=== PATIENT | male | born 1970 | race Caucasian/White ===

== ENCOUNTER 2023-01-05 06:39 | Emergency (ER) | payer MEDICAID, SELFPAY ==
[2023-01-05 06:42] VITALS: BP 160/114; PULSE 104; RESP 16; TEMP 35.8; O2SAT 100; BMI 30.1
--- NOTE | 2023-01-05 06:56 | EDS_ITS ---
HPI History of Present Illness Chief Complaint: General Illness Informant: patient Narrative Narrative: Presents ED per private vehicle requesting a COVID test. Nursing history history of traumatic brain injury in the past. He lives independent. Denies fevers headache chest pains nausea vomiting or diarrhea. Denies myalgias. Reports he was tested 1 to 2 years ago while he was in prison at that time for 3 days. He is not vaccinated. He has not had COVID in the past. No exposures however states he just wants to be tested today. Prior similar symptoms: No PFSH PFSH Medical History no medical history Home Medications NK 01/05/23 [History Last Taken Unknown] Allergy/AdvReac Type Severity Reaction Status Date / Time No Known Allergies Allergy Verified 01/05/23 06:53 Social History Smoking Status: Never smoker ROS ROS ED Constitutional Constitutional ED: Denies chills, fever(s) or sweats Eyes Eyes: Denies change in vision ENT ENT ED: Denies dysphagia or sore throat Cardiovascular Cardiovascular: Denies chest pain, leg edema, palpitations or racing heartbeat Respiratory/Chest Respiratory/Chest: Denies cough, dyspnea or dyspnea on exertion Gastrointestinal Gastrointestinal: Denies abdominal pain, diarrhea, nausea or vomiting Genitourinary Genitourinary ED: Denies dysuria, hematuria or urinary frequency Musculoskeletal Musculoskeletal: Denies back pain, extremity pain or neck pain Integumentary Denies rash or wounds Neurologic Neurologic: Denies headache(s), paresthesias or weakness EXAM Physical Exam Const Vital Signs: 01/05/23 06:42 01/05/23 06:45 Temperature 96.5 F L Temperature Source Temporal Pulse Rate 104 H Respiratory Rate 16 Respiratory Effort Normal Non-Labored Respiratory Pattern Normal Blood Pressure 160/114 H Blood Pressure Mean 129 Pulse Ox 100 Oxygen Delivery Method Room Air Positive well nourished and well developed Constitutional Narrative: Cooperative, nontoxic. General Appearance ED: well developed and NAD HEENT Reports moist mucous membranes normocephalic and atraumatic Eyes PERRL, EOMs intact bilaterally and conjunctivae normal General Eye ED: Yes normal appearance of both eyes Neck no lymphadenopathy and supple General: Negative for tenderness Chest Wall Chest: Negative for tenderness Resp normal respiratory effort and normal air movement Effort and Inspection: symmetric chest movement; Negative for respiratory distress Cardio regular rate, regular rhythm and no murmurs Peripheral Pulses: pulses 2+ throughout GI normal to inspection, nondistended, normoactive bowel sounds and non-tender Palpation: Negative for guarding or rebound tenderness present Back/Spine no CVA tenderness and no thoracic nor lumbar tenderness Extremity normal to inspection General Extremety ED: Negative for edema or tenderness General Extremity: Negative for edema Neuro oriented x3 and no sensory deficits noted Sensorium / Orientation: awake and alert Skin no rashes or lesions noted and no wounds MDM MDM MDM Narrative Medical decision making narrative: Interventions / MDM: Differential diagnosis: Feared complaint, will check Diagnosis considered but do not suspect: COVID however testing negative My EKG interpretation: N/A Imaging independently reviewed and interpreted by myself: N/A External documents reviewed: N/A Test considered but not ordered:N/A ED course: Patient nontoxic afebrile. Clinically asymptomatic requesting testing. Rapid testing ordered which was negative. He is reassured. Outpatient follow-up given. All questions were answered. Re-evaluation: stable Disposition discussed with patient/family/significant other: Patient Case discussed with consulting clinician: N/A This note was generated with Dream[employer] dictation software. It may contain incorrect words, spelling, and punctuation that were not noted in checking the note before signing. Discharge Plan Triage Chief Complaint: General Illness ED Provider: Ramesh Anaya Dx/Rx/DC Orders Clinical Impression: Feared complaint without diagnosis, Well adult health check Instructions: ED Screening Exam Medical Nonurgent Prescriptions: No Action NK Primary Care Provider: Care Physician,No Primary Referrals: Lizbeth Hatch [Non-Staff] - 1-2 Weeks NOT,DEFINED [Non-Staff] - Activity Restrictions/Additional Instructions: COVID testing negative. Follow-up as an outpatient. Disposition Disposition: Home, Self Care Discharge Date/Time: 01/05/23 08:17
== END 2023-01-05 08:17 | disposition home or self-care (01) ==
PROVIDERS: Emergency Provider Emergency Medicine; Visit Provider Emergency Medicine
DX: Z71.1 Person with feared health complaint in whom no diagnosis is made (principal)
CPT/HCPCS: 87811; 99282

== ENCOUNTER 2023-01-06 02:30 | Emergency (ER) | payer MEDICAID, SELFPAY ==
[2023-01-06 02:31] VITALS: BP 173/107; PULSE 119; RESP 18; TEMP 36; O2SAT 98; BMI 29.7
--- NOTE | 2023-01-06 02:43 | EX.ED.DYSGE1 ---
HPI History of Present Illness Chief Complaint: Lower Extremity Injury Detail of Chief Complaint: Blisters to toes of right foot Informant: patient Onset/Context/Timing Onset: Today Narrative Narrative: Patient presents at 2:30 AM secondary to blisters on the toes of his right foot. He states he gets this because he is walking a lot. He states he has no problems with his left foot. PFSH PFSH no medical history Home Medications NK 01/05/23 [History Last Taken Unknown] Allergy/AdvReac Type Severity Reaction Status Date / Time No Known Allergies Allergy Verified 01/06/23 02:34 Social History Smoking Status: Never smoker ROS ROS ED ROS Narrative Patient with pressured speech and difficulty redirecting him to answer questions. Constitutional Constitutional ED: Denies chills or fever(s) Eyes Eyes: Denies change in vision Cardiovascular Cardiovascular: Denies chest pain Respiratory/Chest Respiratory/Chest: Denies cough Integumentary Reports other Details: Blisters to toes of right foot. EXAM Physical Exam Const Vital Signs: 01/06/23 02:31 Temperature 96.8 F L Temperature Source Temporal Pulse Rate 119 H Respiratory Rate 18 Blood Pressure 173/107 H Blood Pressure Mean 129 Pulse Ox 98 Oxygen Delivery Method Room Air Positive well nourished and well developed General Appearance ED: well developed Eyes EOMs intact bilaterally Chest Wall inspection of chest normal and palpation of chest normal Resp normal respiratory effort and clear to auscultation bilaterally Cardio Rate: tachycardic GI non-tender Palpation: soft Extremity Extremity Narrative: Small blister noted to each toe of the right foot. No erythema or surrounding evidence of inflammation. No sign of infection. Strong distal pulses with normal cap refill. Neuro oriented x3 Psych Psych Narrative: Pressured speech with tangential thought process Attitude: agitated MDM MDM MDM Narrative Medical decision making narrative: Dressing is applied to the right foot to help protect the blisters. I did explain to him that we do not drain these secondary to concern for causing an infection. At this time he does not need antibiotics. Discharge Plan Triage Chief Complaint: Lower Extremity Injury ED Provider: Amira Venegas Dx/Rx/DC Orders Clinical Impression: Blisters of multiple sites Instructions: ED Blister (Adult) Prescriptions: No Action NK Primary Care Provider: Care Physician,No Primary Referrals: Jatin Hyde DPM [Med Staff - Active Staff] - As Needed Care Physician,No Primary [Primary Care Provider] - Disposition Disposition: Home, Self Care
== END 2023-01-06 03:06 | disposition home or self-care (01) ==
LOC: ED 02:57
PROVIDERS: Emergency Provider Emergency Medicine; Visit Provider Emergency Medicine
DX: S90.424A Blister (nonthermal), right lesser toe(s), initial encounter (principal); S90.422A Blister (nonthermal), left great toe, initial encounter; X58.XXXA Exposure to other specified factors, initial encounter
CPT/HCPCS: 99282

== ENCOUNTER 2023-01-12 00:21 | Emergency (ER) | payer MEDICAID, SELFPAY ==
[2023-01-12 00:23] VITALS: BP 145/89; PULSE 112; RESP 17; TEMP 36.2; O2SAT 97; BMI 29.6
--- NOTE | 2023-01-12 00:41 | EDS_ITS ---
HPI History of Present Illness Chief Complaint: Lower Extremity Injury Informant: patient Narrative Narrative: Patient states he has sore blisters to his toes for several days after running and walking a lot. He denies any other symptoms or acute injuries. [facility] Medical History Bipolar 1 disorder Home Medications NK 01/05/23 [History Last Taken Unknown] Allergy/AdvReac Type Severity Reaction Status Date / Time No Known Allergies Allergy Verified 01/12/23 00:26 Social History Smoking Status: Never smoker ROS ROS ED Constitutional Constitutional ED: Denies chills or fever(s) Musculoskeletal Musculoskeletal: Reports extremity pain; Denies neck pain Integumentary Reports other Details: blisters to toes ; Denies Abrasions, rash or wounds Neurologic Neurologic: Denies paresthesias or weakness EXAM Physical Exam Const Vital Signs: 01/12/23 00:23 Temperature 97.1 F L Temperature Source Temporal Pulse Rate 112 H Respiratory Rate 17 Blood Pressure 145/89 H Blood Pressure Mean 107 Pulse Ox 97 Oxygen Delivery Method Room Air Positive well nourished and well developed General Appearance ED: well developed and NAD Neck full ROM and supple Back/Spine normal ROM and normal to inspection Extremity Extremity Narrative: Mechanical blisters to several toes all distal except for 1 on the ball of his left foot, first ray plantar aspect. None of these are tender, none are ruptured or leaking, and none show any signs of infection or surrounding cellulitis/induration. Full range of motion all toes and feet/ankles without difficulty. Neuro oriented x3, no focal motor deficits and no sensory deficits noted Sensorium / Orientation: alert Psych thought process normal Psych Narrative: Patient has some pressured speech and is somewhat tangential, but he is not nonsensical. Skin no wounds Skin Narrative: Blisters of multiple toes, see above. Rashes: no rashes MDM MDM MDM Narrative Medical decision making narrative: These are simple mechanical blisters that do not require anything at this time. He was given several Band-Aids to put on these areas if he desires to keep them from rubbing further when he walks. He does have socks and shoes that appear old. There is no evidence of trench foot here, he mentioned that, he is reas sured. He apparently has a history of bipolar according to his past medical history, and his speech is a little pressured and he seems to like he may be a little manic. However he is not talking about anything dangerous or that requires emergent evaluation at this time. I recommend follow-up. Discharge Plan Triage Chief Complaint: Lower Extremity Injury ED Provider: Be Giles Dx/Rx/DC Orders Clinical Impression: Toe blister without infection Instructions: ED Blister (Adult) Prescriptions: No Action NK Primary Care Provider: Care Physician,No Primary Referrals: [facility] Doctor,Out of [Non-Staff] - As Needed Disposition Disposition: Home, Self Care Discharge Date/Time: 01/12/23 00:51
== END 2023-01-12 00:51 | disposition home or self-care (01) ==
LOC: ED 00:50
PROVIDERS: Emergency Provider Emergency Medicine; Visit Provider Emergency Medicine
DX: S90.425A Blister (nonthermal), left lesser toe(s), initial encounter (principal); Y93.01 Activity, walking, marching and hiking
CPT/HCPCS: 99282

== ENCOUNTER 2023-01-13 13:04 | Emergency (ER) | payer MEDICAID, SELFPAY ==
[2023-01-13] VITALS (11 sets, daily range): BP systolic 109–129; BP diastolic 73–89; PULSE 93–106; RESP 16–22; TEMP 36.3; O2SAT 94–98; BMI 29.9
[2023-01-13 14:15] LABS: Absolute Lymphocyte Count 1.21 X10^3/uL (0.83-4.51); Basophil# 0.03 X10^3/uL; Basophil% 0.6 % (0-1); Eosinophil# 0.06 X10^3/uL; Eosinophils% 1.3 % (0-5); Hematocrit 44.1 % (40-54); Hemoglobin 15.5 g/dL (13.0-16.5); Lymphocyte # 1.21 X10^3/ul (0.83-4.51); Lymphocyte % 25.4 % (19-41); Mean Corp Hgb Conc 35.1 g/dL (32-36); Mean Corpuscular Hgb 30.7 pg (27.0-32.0); Mean Corpuscular Volume 87.3 fL (80-94); Mean Platelet Vol. 8.9 fl (6.2-12.0); Monocyte# 0.48 X10^3/uL; Monocyte% 10.1 % (0-10); NRBC Flagged by Analyzer 0 % (0-5); Neutrophil # 2.97 X10^3/uL (2.7-7.7); Neutrophil % 62.4 % (47-70); Platelet Count 259 K/mm3 (150-450); RBC Distribution Width CV 13.7 % (11.6-14.6); RBC Distribution Width SD 43.7 fl (35.1-43.9); Red Blood Count 5.05 M/mm3 (4.6-6.2); White Blood Count 4.8 K/mm3 (4.4-11.0)
[2023-01-13 14:26] LABS: Anion Gap 8 (5-15); BUN 19 mg/dL (7-18); BUN/Creat Ratio 15.7 RATIO (10-20); Calcium,Total 8.3 mg/dL (8.5-10.1); Chloride 107 mmol/L (98-107); Creatinine, Serum 1.21 mg/dL (0.70-1.30); EST Glomerular Filtration Rate 66 mL/min (>60); Est Glom Filt Rate - Afr Amer 80 mL/min (>60); Estimated Creatinine Clearance 72.06 ml/min; Glucose 100 mg/dL (74-106); Potassium 4.3 mmol/L (3.5-5.1); Sodium Level 138 mmol/L (136-145)
--- NOTE | 2023-01-13 14:35 | EX.ED.VIS.PS ---
HPI HPI - Psych History of Present Illness Chief Complaint: Mental Health Detail of Chief Complaint: Bipolar states he wants to be admitted. Informant: patient Onset/Context/Timing Onset: Days Context: Gradual Onset Timing: Continuous Current Severity: Moderate Maximum Severity: Moderate Associated Symptoms Associated Symptoms - Psych: Positive for Grandiosity, Flight of Ideas and Pressured Speech Narrative Narrative: 52-year-old male history of bipolar that does not take any medications. States he does not believe medications. Patient is manic. To be admitted to a psychiatric hospital. Prior similar symptoms: Yes Recent Illness/Hospitalization: No PFSH PFSH Medical History Bipolar 1 disorder Home Medications NK 01/05/23 [History Last Taken Unknown] Allergy/AdvReac Type Severity Reaction Status Date / Time No Known Allergies Allergy Verified 01/12/23 00:26 Surgical History Hx of brain surgery Social History Smoking Status: Never smoker ROS ROS ED ROS Narrative Denies recent illness. Review of Systems ROS Unobtainable: Denies due to encephalopathy Constitutional Constitutional ED: Denies chills or fever(s) Eyes Eyes: Denies blurry vision ENT ENT ED: Denies ear pain Cardiovascular Cardiovascular: Denies chest pain or palpitations Respiratory/Chest Respiratory/Chest: Denies cough or dyspnea Gastrointestinal Gastrointestinal: Denies abdominal pain Genitourinary Genitourinary ED: Denies dysuria or hematuria Musculoskeletal Musculoskeletal: Denies arthralgias or back pain Integumentary Denies abscess or Abrasions Neurologic Neurologic: Denies headache(s) Psychiatric Psychiatric: Denies anxiety or depression Endocrine Endocrinology: Denies polydipsia Hematologic/Lymphatic Hematologic/Lymphatic: Denies easy bleeding or easy bruising Allergic/Immunologic Allergic/Immunologic ED: Denies mouth swelling or tongue swelling EXAM Physical Exam Narrative Exam Narrative: 52-year-old male vital signs stable afebrile. He does not look septic toxic. He is in no distress. He does come across as manic. H EENT exam unremarkable. Neck nontender. Lungs clear to auscultation bilaterally. Heart regular rhythm no murmur rate about 105. Chest wall nontender. Abdomen soft nontender. Moving all 4 extremities. No deformity. Neurologically is awake and alert. No focal motor deficits. Answering questions and following commands. He does have pressured speech. He does have flight of ideas. He jumps from 1 topic to the other. He is cooperative. He is currently not violent. Const Vital Signs: 01/13/23 13:05 Temperature 97.4 F L Temperature Source Temporal Pulse Rate 106 H Respiratory Rate 22 H Blood Pressure 129/89 H Blood Pressure Mean 102 Pulse Ox 94 Oxygen Delivery Method Room Air Positive well nourished and well developed; Negative for cachectic, contractures or unkempt General Appearance ED: well developed and NAD; Negative for unkempt, cachectic, contractures or pallor Nutritional Appearance: Negative for cachectic HEENT Reports moist mucous membranes normocephalic and atraumatic; Negative for trauma or tenderness Eyes PERRL and EOMs intact bilaterally General Eye ED: Negative for pale conjunctiva, scleral icterus or other Neck no lymphadenopathy, supple and no JVD General: Negative for tenderness Resp normal respiratory effort and clear to auscultation bilaterally Effort and Inspection: Negative for retractions Auscultation: Negative for rales, rhonchi, wheezes or diminished lung sounds Cardio S1 normal heart sound, S2 normal heart sound and no murmurs Palpation: Negative for other Rate: tachycardic; Negative for regular rate Rhythm: regular rhythm GI non-tender, non-distended and no masses Inspection: Negative for abdominal distention Auscultation: normoactive bowel sounds Palpation: soft; Negative for tender or guarding Back/Spine no CVA tenderness General Back: Negative for CVA tenderness Cervical Spine: Negative for cervical spine tenderness Thoracic Spine / Upper Back: Negative for thoracic spinal tenderness Lumbar Spine / Lower Back: Negative for lumbar spinal tenderness Coccyx: Negative for other Extremity normal to inspection General Extremety ED: Negative for tenderness Neuro oriented x3 and CN's II-XII intact bilaterally Sensorium / Orientation: alert, oriented to person, oriented to place and oriented to time; Negative for orientation impaired, confused, lethargic or stuporous Motor Exam: strength 5/5 throughout Psych cooperative, speech normal, activity/motor behavior normal, denies hallucinations, denies homicidal ideation and denies suicidal ideation; Negative for mental status grossly normal Appearance: grossly normal; Negative for unkempt Attitude: engaged Activity / Motor Behavior: appropriate eye contact Speech: excessive, rapid and pressured Mood & Affect: elevated mood Thought Process: normal thought process Thought Content: normal thought content Attention / Concentration: attention grossly intact Memory / Cognition: memory grossly intact Insight: insight good Judgement: judgement good Skin General Skin Exam: Negative for jaundice or pallor Lesions: no lesions Rashes: no rashes Trauma: Negative for abrasion Wounds: Negative for amputation MDM MDM MDM Narrative Medical decision making narrative: 52-year-old male with known bipolar does not take any medications for it. Currently he is obviously manic. Would like to be admitted to a psychiatric facility. He will go through ED mental health evaluation with appropriately labs. My licensed social worker will evaluate him for admission. Patient needed Geodon to help calm him down. Currently at 3:55 PM is resting comfortably. Patient is already been evaluated by a licensed social worker. She also spoke to his signaling project engineer. She is working on placement at a psychiatric facility. History & Record Review Discussion w/independent historian: Patient Additional record(s) reviewed:: Prior inpatient record, Prior outpatient record, Prior ED visit and Prior labs Lab Data Attestation: I reviewed the patient's lab results. Lab results narrative: cBC normal. White count of 4. H&H of 15 and 44. Platelets 259. Electrolytes show a normal gap of 8 normal BUN and creatinine 19 and 1.2. Glucose 100. Tox screen pending. Labs: Laboratory Results - last 24 hr 01/13/23 14:06 WBC 4.8 RBC 5.05 Hgb 15.5 Hct 44.1 MCV 87.3 MCH 30.7 MCHC 35.1 RDW Std Deviation 43.7 RDW Coeff of Mohamud 13.7 Plt Count 259 MPV 8.9 Immature Gran % (Auto) 0.200 Neut % (Auto) 62.4 Lymph % (Auto) 25.4 Ritchie % (Auto) 10.1 H Eos % (Auto) 1.3 Baso % (Auto) 0.6 Absolute Neuts (auto) 3.0 Absolute Lymphs (auto) 1.21 Nucleated RBC % 0 Sodium 138 Potassium 4.3 Chloride 107 Carbon Dioxide 23.0 Anion Gap 8 BUN 19 H Creatinine 1.21 Estim Creat Clear Calc 72.06 Est GFR (MDRD) Af Amer 80 Est GFR (MDRD) Non-Af 66 BUN/Creatinine Ratio 15.7 Glucose 100 Calcium 8.3 L Ethyl Alcohol 3.0 Discharge Plan Triage Chief Complaint: Mental Health ED Provider: Armaan Sylvester Dx/Rx/DC Orders Clinical Impression: History of bipolar disorder, Bipolar 1 disorder with moderate charles Prescriptions: No Action NK Primary Care Provider: Care Physician,No Primary Referrals: Care Physician,No Primary [Primary Care Provider] - Disposition Disposition: Psychiatric Hospital or Unit
[2023-01-13] MEDS: Ziprasidone IM 20 MG/ML VIAL IM ×2 (15:09→23:41)
--- NOTE | 2023-01-13 16:39 | CM.ED ---
Social Work Psychiatric Assessment Reason for consult: Mental Health Informant(s): Patient, medical record, Friend Lg Clifford Chief Complaint: Mental health - manic Marital/Social History/Living Situation: Patient is a 52-year-old single male. Pt reportedly resides in [place] and has a hotel he stays in. Pt also has a hotel rented in [place]. Pt denies having any family or supports besides his friend which is a optical instrument repairer that assists him with his trust. History: None Education and Employment History: Unemployed, college Mental Health Treatment/History: Patient reports he has been to [place] multiple times and he would like to go back. Pt reports he is not taking medications but does have bipolar. Pt reports he is currently manic. Pt presents as manic with erratic behaviors and is a poor historian. Substance Abuse Hx: Pt denies. Abuse Issues/Trauma HX: Unknown Risk to Self/Others: Pt denies SI/HI. History of SI/HI is unclear. Triggers/Stressors/Risk factors: Pt does not have a support system and presents as manic. Pt has legal history and [place] [facility] history related to manic phases. Coping Skills: None Support/Resources: Personal Financial Planner Lg Clifford Mental Status Exam: Pt is oriented to self and location only. Pt has good memory. Appearance/General Behavior/Mood/Affect: Pt is erratic with manic mood. Affect congruent to mood. Pt is pacing, removing shirt, yelling out to staff members and generally inappropriate. Communication Pattern/Thought process: Pt has rapid speech with tangential thought process. Pt has flight of ideas and difficult to redirect. Pt yells out to staff in the hallway throughout assessment. General Intellectual Functioning:?? Above Average Judgment/Insight: Pt presents with poor judgment and insight Assessment: ?Patient presents in [place] ED for the 4th visit in the past week. Pt?s previous visits were unrelated to mental health but there was concern patient could be manic on visit yesterday for blisters on his feet. Pt presented today saying he is manic and needs a ?nut house.? Pt?s behavior is erratic. Pt is pacing, yelling out of his room and standing in the doorway. Pt verbally aggressive with staff but not physically aggressive. Pt cooperative with SW and agreed to answer questions. Pt shouted out to staff in the [place] that he was angry with and also shouted about patient?s walking in the [place]. Pt?s speech is rapid, tangential thought process, and flight of ideas. Pt can be redirected but majority of information given not applicable to the question asked. Pt denies taking medications and reports a bipolar diagnosis. Pt reports he has been to [place] and wants to go back. Pt denies substance abuse. Pt reports having two different hotel rooms and showed SW his hotel keys and wallet contents. Pt directed SW to call friend, Lg Clifford, who is a optical instrument repairer. Mr. Clifford reports he is not patient?s POA but has assisted patient over the years with legal and mental health concerns. 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 Venessa reports patient has been to [place] many times and has cycled through manic phases over the years. Pt reportedly lives in a hotel due to being unable to keep stable housing. Pt has a trust in which optical instrument repairer assists him with. Venessa requests notification of patient status and where the vehicle is located/keys in order to obtain patient?s vehicle. Cruzdenice reports he typically picks patient up at discharge. SW agreed and patient is also requesting Venessa to be involved with care. Patient would benefit from inpatient psychiatric placement for stabilization due to charles, paranoia, and erratic behaviors. ED physician is in agreement with psychiatric placement. Plan:. Pt to be referred for psychiatric hospitalization. Peg Stack STORES CLERK, QUALITY CONTROL MICROBIOLOGIST
[2023-01-13 17:20] LABS: Amphetamine Urine VISTA NEGATIVE (<1000 ng/mL); Barbiturate Urine VISTA NEGATIVE (< 200 ng/mL); Benzodiazepine Urine VISTA NEGATIVE (< 200 ng/mL); Cocaine Urine VISTA NEGATIVE (< 300 ng/mL); Ecstacy Urine VISTA NEGATIVE (< 500 ng/mL); Methadone Urine VISTA NEGATIVE (< 300 ng/mL); PCP Urine VISTA NEGATIVE (< 25 ng/mL); THC Urine VISTA NEGATIVE (< 50 ng/mL); Vista UDS pH Range 5
--- NOTE | 2023-01-13 20:18 | CM.ED ---
Addendum entered by Peg Stack 01/13/23 22:45: Referral to [facility] cancelled. [facility] to receive patient at 7am. [facility] had to utilize pt's bed for an emergent situation. Report number is [phone]. [place] slip made out to [facility] faxed prior to acceptance. Dr. Thakkar, accepting physician. Information given to ward secretary to schedule transportation. SW additionally left voicemail for patient's friend/larry car operator Lg Clifford ([phone]). Left VM with expected transport to [facility]. Cruzdenice is involved in patient's needs and had reported ability to picking machine operator patient's vehicle and pick pt up at discharge from psych facility. Pt's vehicle at [facility] on [address] in [place], information left on voicemail. Pt currently has keys to vehicle and they are likely to be transported with patient to facility.Chief Psychology made aware of additional hotel keys patient disclosed and larry car operator prepared to collect possessions if needed. SW and hospital numbers left for larry car operator if further assistance is needed. Peg ANNE, SCUBA INSTRUCTOR Original Note: Social Work Pt referred to [facility] and [facility]. [facility] accepted for morning transfer. [facility] pending acceptance. SW to await [facility] acceptance and will cancel [facility] for AM if accepted. Peg ANNE, SCUBA INSTRUCTOR
[2023-01-13] MEDS: LORazepam 2 MG/ML Syringe IM (23:41)
[2023-01-14 02:26] VITALS: BP 117/80; PULSE 95; RESP 15; O2SAT 98
[2023-01-14 03:30] VITALS: RESP 16
[2023-01-14 06:03] VITALS: BP 118/62; PULSE 67; RESP 18; TEMP 36.7; O2SAT 97
== END 2023-01-14 06:47 ==
PROVIDERS: Emergency Provider Emergency Medicine; Visit Provider Emergency Medicine
DX: F31.9 Bipolar disorder, unspecified (principal)
CPT/HCPCS: 80048; 80307; 82077; 85025; 93005; 96372; 99285; J3486